=== PATIENT | female | born 1995 | race Caucasian/White ===

== ENCOUNTER 2024-10-26 11:54 | Outpatient (CLI) | payer BC, SELFPAY ==
[2024-10-26 12:04] LABS: Abs Immature Grans 0.03 10^3/uL (0.0-0.06); HCT 39.2 % (36.0-46.0); HGB 13.6 g/dL (11.2-15.7); Immature Grans % 0.3 %; MCH 31.6 pg (27.0-33.0); MCHC 34.7 % (32.0-36.0); MCV 91 fL (80-95); MPV 9.3 fL (8.0-11.0); Platelet Count 386 10^3/uL (130-400); RBC 4.30 10^6/uL (3.93-5.22); RDW 11.6 % (11.7-14.6); RDW-SD 38.5 fL; WBC 10.42 10^3/uL (4.4-10.8)
[2024-10-26 12:33] LABS: PROTEIN 7.7 mg/dL; Prot/Crea Ur Ratio 0.08
[2024-10-26 12:38] LABS: ALT 45 U/L (14-59); AST 24 U/L (15-37); Albumin 3.6 g/dL (3.4-5.0); Alkaline Phosphatase 52 U/L (46-116); Anion Gap 7.7 mmol/L (3-11); BUN 11 mg/dL (7-18); Bilirubin, Total 0.5 mg/dL (0.2-1.0); CO2 26.3 mmol/L (21.0-32.0); Calcium 8.8 mg/dL (8.5-10.1); Chloride 105 mmol/L (98-107); Estimated GFR 118.51 (mL/min/1.73m2); Glucose 90 mg/dL (74-106); Potassium 3.4 mmol/L (3.5-5.1); Sodium 139 mmol/L (136-145); Total Protein 6.6 g/dL (6.4-8.2)
== END 2024-10-26 11:55 | disposition home or self-care (01) ==
LOC: LBO 11:54
PROVIDERS: Visit Provider Obstetrics & Gynecology
DX: I10 Essential (primary) hypertension (principal); O09.90 Supervision of high risk pregnancy, unspecified, unspecified trimester
CPT/HCPCS: 36415; 80053; 82565; 84156; 85025

== ENCOUNTER 2024-12-20 04:22 | Outpatient (CLI) | payer BC, SELFPAY ==
[2024-12-20 11:44] LABS: Abs Immature Grans 0.03 10^3/uL (0.0-0.06); HCT 35.7 % (36.0-46.0); HGB 12.8 g/dL (11.2-15.7); Immature Grans % 0.4 %; MCH 31.4 pg (27.0-33.0); MCHC 35.9 % (32.0-36.0); MCV 88 fL (80-95); MPV 9.2 fL (8.0-11.0); Platelet Count 327 10^3/uL (130-400); RBC 4.07 10^6/uL (3.93-5.22); RDW 11.9 % (11.7-14.6); RDW-SD 37.7 fL; WBC 6.83 10^3/uL (4.4-10.8)
[2024-12-20 11:58] LABS: Glucose,1 Hr (Glucola) 138 mg/dL (80-140)
[2024-12-20 12:01] LABS: Hemoglobin A1C 4.7 % (<5.7)
[2024-12-20 12:45] LABS: ALT 27 U/L (14-59); AST 19 U/L (15-37); Albumin 3.2 g/dL (3.4-5.0); Alkaline Phosphatase 40 U/L (46-116); Anion Gap 7.8 mmol/L (3-11); BUN 15 mg/dL (7-18); Bilirubin, Total 0.7 mg/dL (0.2-1.0); CO2 25.2 mmol/L (21.0-32.0); Calcium 9.0 mg/dL (8.5-10.1); Chloride 103 mmol/L (98-107); Estimated GFR 122.99 (mL/min/1.73m2); Glucose 138 mg/dL (74-106); Potassium 4.0 mmol/L (3.5-5.1); Sodium 136 mmol/L (136-145); Total Protein 6.5 g/dL (6.4-8.2)
[2024-12-20 18:22] LABS: Hepatitis C Ab w Rflx HCV PCR Negative (Negative)
[2024-12-20 18:28] LABS: HIV-1/2 Ag & Ab Screen Negative (Negative)
[2024-12-21 11:14] LABS: Rubella IgG Ab (UVM) Positive (See Note)
[2024-12-22 13:26] LABS: Syphilis IgG w/Reflex Nonreactive (Nonreactive)
== END 2024-12-20 04:23 | disposition home or self-care (01) ==
LOC: LBO 04:22
PROVIDERS: Obstetrics & Gynecology; Visit Provider Obstetrics & Gynecology
DX: Z34.91 Encounter for supervision of normal pregnancy, unspecified, first trimester (principal)
CPT/HCPCS: 36415; 80053; 81329; 82950; 86787; 86803; 86850; 86900; 86901; 87340; 87389; 83036; 85025; 86762; 86780

== ENCOUNTER 2024-12-20 12:12 | Outpatient (REF) | payer BC, SELFPAY ==
[2024-12-20 13:30] LABS: PROTEIN 8.3 mg/dL; Prot/Crea Ur Ratio 0.11
[2024-12-20 13:37] LABS: Cannabinoids THC Negative (Negative); METHADONE URINE SCREEN Negative (Negative)
[2024-12-21 11:19] LABS: Chlamydia Result Negative (Negative); GC Result Negative (Negative)
== END 2024-12-20 12:13 | disposition home or self-care (01) ==
LOC: LBN 12:12
PROVIDERS: Visit Provider Obstetrics & Gynecology
DX: Z34.91 Encounter for supervision of normal pregnancy, unspecified, first trimester (principal)
CPT/HCPCS: 80307; 87491; 87591; 88142; 82565; 84156; 87086; 87624

== ENCOUNTER 2025-01-15 16:21 | Outpatient (CLI) | payer BC, SELFPAY ==
[2025-01-15 16:39] LABS: HCG Quant, Pregnancy 9 mIU/mL (1-3)
== END 2025-01-15 16:22 | disposition home or self-care (01) ==
LOC: LBO 16:21
PROVIDERS: Visit Provider Obstetrics & Gynecology
DX: O03.9 Complete or unspecified spontaneous abortion without complication (principal)
CPT/HCPCS: 36415; 84702